=== PATIENT | female | born 1965 | race Caucasian/White ===

== ENCOUNTER 2016-10-23 05:15 | Inpatient (IN) | payer OTHER ==
--- NOTE | 2016-10-20 01:12 | PREOPHP ---
DATE OF ADMISSION: 10/23/2016 The patient is coming in for surgery on 10/23/2016. HISTORY OF PRESENT ILLNESS: This is a 50-year-old female 5, para 4, with 1 . This patient has been referred to me due to a prolapse of her bladder and ureters. This patient has been referred by clinic to have vaginal reconstruction. She has been complaining of a mass that h as come out of her and stays outside, with incontinence and difficulty voiding; has not been able to void due to this mass that protrudes outside her vagina. She uses a pad to push the mass inside he rself. PAST MEDICAL HISTORY: section, cholecystectomy, D and C, and 3 vaginal deliveries. ALLERGIES: SHE IS NOT ALLERGIC TO ANY MEDICATIONS. MEDICATIONS: She is on no medication. FAMILY HISTORY: Heart attacks, diabetes, hypertension, breast cancer. REVIEW OF SYSTEMS: Noncontributory. PHYSICAL EXAMINATION: VITAL SIGNS: Blood pressure 130/80, pulse is 80, respirations 16, temperature is 98.6, she weighs 1 73, she is 5 feet 6 inches. HEAD AND NECK: Normal. BREASTS: Soft, nontender, no masses. CHEST: Clear. HEART: Normal sinus rhythm. BACK: Normal. ABDOMEN: Soft, nontender, no masses. PELVIC: With a cervix that is outside the vagina as complete uterovaginal procidentia. The uterus is dry on the cervical area. There is vaginal atrophy. Normal size uterus. Adnexa are nonpalpable . DIAGNOSES: 1. Complete uterovaginal prolapse procidentia. 2. Vaginal atrophy. 3. Menopause. PLAN: She is undergoing a vaginal total hysterectomy, anterior and posterior colporrhaphy with a sl ing and a graft. She has been advised of the possible risks and possible complications of the proce dure with her alternatives and options. Written information was provided. She had no more question s and agreed to go ahead with the procedure with full understanding and no more questions. The minnie ent understands that she had a previous section and there is a possibility that I might nee d to do an exploratory lap if I am not able to remove the uterus vaginally. Dictated By: ALEXIS INTERAINO/NTS Conf#: [id number] DID#: [id number]
[~2016-10-23] VITALS: Ht 165.1 cm; Wt 76.2 kg
[2016-10-23] VITALS (36 sets, daily range): BP systolic 94–185; BP diastolic 52–92; PULSE 64–90; RESP 10–18; Ht 165.1 cm; Wt 76.2 kg
[2016-10-23] MEDS ORDERED: CEFAZOLIN 2 GM/50 ML (PMX) 50 ML IVPB ONE (06:30)
[2016-10-23] MEDS ORDERED: DEXTROSE 5%-LR 1,000 ML IV SCH (06:30)
[2016-10-23] MEDS ORDERED: THROMBIN 5000 UNIT VIAL ONE (06:57)
[2016-10-23] MEDS ORDERED: BUPIVACAINE 0.25%/EPI (SDV) 30 ML INJ ONE ×2 (07:07→09:25)
[2016-10-23] MEDS ORDERED: PROPOFOL 20 ML ONE (07:36)
[2016-10-23] MEDS ORDERED: morphine SULFATE/PF (10 MG/10 ML) INJ ONE (07:36)
[2016-10-23] MEDS ORDERED: ROCURONIUM 50 MG INJ ONE (07:36)
[2016-10-23] MEDS ORDERED: CEFAZOLIN 1 GM INJ ONE (07:36)
[2016-10-23] MEDS ORDERED: MIDAZOLAM 1 MG/ML 2 ML INJ ONE (07:37)
[2016-10-23] MEDS ORDERED: FENTAnyl 50 MCG/ML VIAL ONE (07:37)
--- NOTE | 2016-10-23 07:39 | HPN ---
Date/Time of Note Date/Time of Note DATE: 10/23/16 TIME: 07:39 Interval H&P Admission Note Pt. seen H&P reviewed: No system changes ALEXIS AVITIA MD Oct 23, 2016 07:39
[2016-10-23] MEDS: LACTATED RINGER'S 1,000 ML IV SCH ×2 (07:41→14:35)
[2016-10-23] MEDS ORDERED: DIPHENHYDRAMINE 50 MG CAP PO PRN (08:00)
[2016-10-23] MEDS ORDERED: HYDROmorphONE 1 MG/ML SYG IV PRN ×3 (08:00→10:00)
[2016-10-23] MEDS ORDERED: HYDROCODONE/APAP (5/325) TAB PO PRN ×2 (08:00→10:00)
[2016-10-23] MEDS ORDERED: KETOROLAC 30 MG INJ IV SCH (08:00)
[2016-10-23] MEDS ORDERED: ZOLPIDEM 5 MG TAB PO PRN (08:00)
[2016-10-23] MEDS ORDERED: ONDANSETRON 4 MG INJ ONE (09:55)
[2016-10-23] MEDS ORDERED: METOCLOPRAMIDE 10 MG INJ ONE (09:55)
[2016-10-23] MEDS ORDERED: DEXAMETHASONE 4 MG/ML 1 ML INJ ONE (09:55)
[2016-10-23] MEDS ORDERED: ACETAMINOPHEN 1000MG/100ML IV 100 ML ONE (09:56)
[2016-10-23] MEDS ORDERED: KETOROLAC 30 MG INJ ONE (09:56)
[2016-10-23] MEDS ORDERED: morphine 4 MG/ML VIAL IV PRN (10:00)
[2016-10-23] MEDS ORDERED: morphine 2 MG INJ IV PRN (10:00)
[2016-10-23] MEDS ORDERED: KETOROLAC 30 MG INJ IV PRN (10:00)
[2016-10-23] MEDS ORDERED: ACETAMINOPHEN 500 MG TAB PO PRN (10:00)
[2016-10-23] MEDS ORDERED: NALOXONE (0.4 MG/ML) INJ IV PRN (10:00)
[2016-10-23] MEDS ORDERED: NEOSTIGMINE 3 MG/3 ML SYRINGE ONE (10:32)
[2016-10-23] MEDS ORDERED: GLYCOPYRROLATE 0.4 MG INJ ONE (10:32)
--- NOTE | 2016-10-23 10:48 | OPR ---
Date/Time of Note Date/Time of Note DATE: 10/23/16 TIME: 10:48 Operative Report Procedure Date: Oct 23, 2016 Preoperative Diagnosis complete uterovaginal prolapse mixed incontinence Postoperative Diagnosis same Operation Performed VAGINAL TOTAL HYSTERECTOMY BILATERAL PARTIAL SALPINGECTOMY ANTERIOR AND POSTERIOR COLPORRHAPHY OBTRYX SLING ACCELL GRAFT CYSTOSCOPY Surgeon: ALEXIS AVITIA MD assistant banquet manager: NICK GARCIA MD Anesthesia: general Estimated Blood Loss: 50 - 100 ml's Specimens UTERUS TUBES VAGINAL MUCOSA Grafts/Implants ACCELL AND XENFORM GRAFT OBTRYX SLING Complications: None Pt Condition Post Procedure: stable Disposition: PACU ALEXIS AVITIA MD Oct 23, 2016 10:48
--- NOTE | 2016-10-23 11:43 | OPR ---
Date/Time of Note Date/Time of Note DATE: 10/23/16 TIME: 11:10 Operative Report Free Text/Dictation This is Dr. avitia dictating. Preoperative report Patient name is Berenice Del Real Procedure total vaginal hysterectomy anterior and posterior repair suburethral sling, Obtryx Accell graft Cystoscopy. Procedure : the patient was placed in the lithotomy position the perineal and vaginal area were prepped and draped and confirmatory examination under anesthesia revealed that she had a complete uterovaginal prolapse A clamp was used on the cervix and the LigaSure instrument was used for the cardinal ligaments and the uterosacral ligaments and injection with Xylocaine and epinephrine was given around the cervix and into the cul-de-sac was found then the posterior cul-de-sac was found the uterine vessels were clamped cut and tied with the LigaSure instrument again and the uterus was inverted and the ovarian pedicle was clamped with Mame clamps and the uterus was excised both Cari clamps were sutured with double stitches with #1 Vicryl the hemostasis was perfect the pleased with piece of the both tubes were removed due to prevention for future ovarian cancer and this was done with a LigaSure instrument the fimbriated end of both tubes were removed the cavity was closed with a pursestring suture with an 0 Vicryl and the cardinal ligament stump and the utero uterine pedicles on the adnexal area were tied to ipsilateral side and the sutures were passed through the vaginal mucosa anteriorly and posteriorly, a pursestring suture with an 0 Vicryl was used to close the peritoneum. The vagina was now closed with interrupted sutures with #1 Vicryl and this was done vertically by tying the pedicles of the adnexa, the vaginal cuff was lifted up. Now at this time the anterior repair was started by placing a Bolton catheter and a midline incision was made 2 cm below the urethra all the way up to the vaginal cuff, injection with Xylocaine and epinephrine was given to separate the planes and the bladder was from the anterior vaginal mucosa, the bladder was in the third to fourth degree prolapse and it was pursestring with a 2-0 Vicryl suture this lifted up the vaginal cuff. Now the Obtryx sling was going to be placed and the lucita was done 2 cm below the adductor longus tendon parallel to the clitoris the Obtryx needle was passed through the obturator perforating the membrane and reaching the periurethral area where the sling was attached to it and brought up the arms of the sling through the obturator canal, this was done in both sides and the sling was approximated to the urethral area, before this was done a piece of acell and a piece xenform graft were covering the mid urethral area for protection, the sling was placed without being pulled and on the other side of the sling the same graft with Accell as well were placed for protection of possible protrusion into the vagina , the vagina was slightly trimmed due to a major excess of the vaginal mucosa and the vagina was closed vertically with 2 0 pop offs 2-0 Vicryl sutures. At this time his cystoscopy was done with a #70 camera and the intactness of the bladder was assessed and found to be in very good condition the cystoscope. Cystoscopy was finished and the Bolton catheter was placed back in and now the posterior repair was started by making a triangular incision of the perineum, this portion of the skin was removed and the injection of Xylocaine and epinephrine was given to the middle of the posterior vaginal mucosa to about 5 cm inside the vagina, the midline incision of the vagina was made, the rectocele was from the posterior vaginal mucosa the rectocele was reduced with 2-0 Vicryl sutures and the ends and the excess of the vaginal mucosa were trimmed, the vaginal mucosa was closed with 2-0 Vicryl pop off sutures and the perineal area was tied with #1 Vicryl suture large stitch to the levator ani muscle, the posterior vaginal area was lifted with this stitch , the rest of the perineum was closed as a regular episiotomy with 2-0 Vicryl and 3-0 Vicryl and and an iodoform gauze was placed in the vagina for control of bleeding and for reposition of the tissues that were loosened up. The patient tolerated the procedure well and left the OR awake and stable sponge counts and instruments counts were correct, intravenous antibiotics were given for prophylaxis blood loss was minimal and the urine was clear at the end of the procedure this is Dr Avitia, thank you very much Procedure Date: Oct 23, 2016 Preoperative Diagnosis complete uterovaginal prolapse mixed incontinence Postoperative Diagnosis same Operation Performed VAGINAL TOTAL HYSTERECTOMY BILATERAL PARTIAL SALPINGECTOMY ANTERIOR AND POSTERIOR COLPORRHAPHY OBTRYX SLING ACCELL GRAFT CYSTOSCOPY Surgeon: ALEXIS AVITIA MD care assistant: NICK GARCIA MD Anesthesia: general Estimated Blood Loss: 50 - 100 ml's Specimens UTERUS TUBES VAGINAL MUCOSA Grafts/Implants ACCELL AND XENFORM GRAFT OBTRYX SLING Complications: None Pt Condition Post Procedure: stable Disposition: PACU ALEXIS AVITIA MD Oct 23, 2016 11:43
[2016-10-23] MEDS: ONDANSETRON 4 MG INJ IV PRN ×2 (11:49→21:53)
[2016-10-23] MEDS: METOCLOPRAMIDE 10 MG TAB PO SCH ×2 (12:00→18:15)
[2016-10-23] MEDS: CEFAZOLIN 1 GM/50 ML (PMX) 50 ML IVPB SCH ×2 (14:36→21:54)
[2016-10-23] MEDS ORDERED: ONDANSETRON 4 MG INJ IV PRN (17:00)
[2016-10-24] MEDS: METOCLOPRAMIDE 10 MG TAB PO SCH ×4 (00:12→17:32)
[2016-10-24 00:15] VITALS: BP 99/55; PULSE 79; RESP 20
[2016-10-24] MEDS: LACTATED RINGER'S 1,000 ML IV SCH ×2 (00:17→10:49)
[2016-10-24 05:32] LABS: ADD SCAN DIFF NO
[2016-10-24 05:37] LABS: BASOPHILS % 0.1 % (0.0-2.0); HEMOGLOBIN 11.4 g/dl (12.0-16.0); LYMPHOCYTES # 1.7 10^3/ul (0.8-2.9); LYMPHOCYTES % 12.3 % (15.0-51.0); MEAN CORPUSCULAR HGB CONC 31.7 g/dl (32.0-37.0); MEAN CORPUSCULAR VOLUME 85.3 fl (82.0-101.0); MEAN PLATELET VOLUME 9.8 fl (7.4-10.4); MONOCYTES % 7.7 % (0.0-11.0); NEUTROPHIL # 10.7 10^3/ul (1.6-7.5); NEUTROPHILS % 79.3 % (39.0-77.0); PLATELET COUNT 240 10^3/UL (140-415); RED BLOOD COUNT 4.22 10^6/ul (4.20-5.40); RED CELL DISTRIBUTION WIDTH 13.8 % (11.5-14.5); WHITE BLOOD COUNT 13.5 10^3/ul (4.8-10.8)
[2016-10-24 05:45] VITALS: BP 94/50; PULSE 69; RESP 20
[2016-10-24] MEDS: CEFAZOLIN 1 GM/50 ML (PMX) 50 ML IVPB SCH (06:09)
[2016-10-24 06:14] LABS: CREATININE 0.53 mg/dl (0.44-1.00); POTASSIUM 4.9 mmol/L (3.5-5.1)
[2016-10-24 07:19] VITALS: BP 90/55; RESP 18
--- NOTE | 2016-10-24 12:23 | PN ---
Date/Time of Note Date/Time of Note DATE: 10/24/16 TIME: 12:20 Assessment/Plan Lines/Catheters IV Catheter Type (from Nrsg): Peripheral IV Bolton in Place (from Nrsg): No Subjective 24 Hr Interval Summary Patient is doing very well this morning, she has not been up yet Bolton catheter and vaginal packing has been removed and she feels with no pain on IV medication and p.o. medication The patient is advised to get up and mobilize and she probably will be discharged tomorrow after she has a bowel movement Laboratory testing were all within normal limits Constitutional: BM, ambulates, flatus, improved, no complaints, urine output Feeding: advancing diet Pain Control: well controlled Detailed Summary Eyes: no complaints ENT: no complaints Respiratory: no complaints Cardiovascular: no complaints Gastrointestinal: no complaints Genitourinary: no complaints Musculoskeletal: no complaints Skin: no complaints Neurologic: no complaints Endocrine: no complaints Lymphatic: no complaints Psychological: nl mood/affect, no complaints Immunologic: no complaints Exam/Review of Systems Vital Signs Vitals Vital Signs Date Time Temp Pulse Resp B/P Pulse Ox O2 Delivery O2 Flow Rate FiO2 10/24/16 08:30 Nasal Cannula 1.0 10/24/16 07:19 98.5 73 18 90/55 95 Intake and Output 10/23/16 10/23/16 10/24/16 15:00 23:00 07:00 Intake Total 1400 ml 350 ml 1825 ml Output Total 100 ml 500 ml 1350 ml Balance 1300 ml -150 ml 475 ml Exam Constitutional: alert, oriented, well developed Psych: nl mood/affect, no complaints Head: atraumatic, normocephalic Eyes: EOMI, nl conjunctiva, nl lids, nl sclera ENMT: mucosa pink and moist, nl external ears & nose, nl lips & teeth, nl nasal mucosa & septum Neck: non-tender, supple Respiratory: clear to auscultation, normal air movement Cardiovascular: nl pulses, regular rate and rhythm Gastrointestinal: nl liver, spleen, non-tender, soft Musculoskeletal: nl extremities to inspection, nl gait and stance Extremities: normal pulses Neurological: DESK OPERATOR II-XII intact, nl mental status, nl speech, nl strength Skin: nl turgor, rash or lesions Lymph: nl lymph nodes Results Result Diagram: 10/24/16 0523 10/24/16 0523 ALEXIS AVITIA MD Oct 24, 2016 12:23
[2016-10-24] MEDS: HYDROCODONE/APAP (5/325) TAB PO PRN ×2 (14:16→20:57)
[2016-10-24 20:08] VITALS: BP 108/61; PULSE 72; RESP 18
[2016-10-25] MEDS: METOCLOPRAMIDE 10 MG TAB PO SCH ×3 (00:19→12:35)
[2016-10-25 06:40] LABS: BASOPHILS % 0.3 % (0.0-2.0); EOSINOPHILS % 0.2 % (0.0-7.0); HEMATOCRIT 35.9 % (37.0-47.0); HEMOGLOBIN 11.5 g/dl (12.0-16.0); LYMPHOCYTES # 2.7 10^3/ul (0.8-2.9); LYMPHOCYTES % 24.1 % (15.0-51.0); MEAN CORPUSCULAR HEMOGLOBIN 27.4 pg (29.0-33.0); MEAN CORPUSCULAR VOLUME 85.5 fl (82.0-101.0); MEAN PLATELET VOLUME 10.8 fl (7.4-10.4); MONOCYTE # 0.9 10^3/ul (0.3-0.9); MONOCYTES % 7.8 % (0.0-11.0); NEUTROPHIL # 7.6 10^3/ul (1.6-7.5); NEUTROPHILS % 67.2 % (39.0-77.0); PLATELET COUNT 227 10^3/UL (140-415); RED CELL DISTRIBUTION WIDTH 14.5 % (11.5-14.5); WHITE BLOOD COUNT 11.3 10^3/ul (4.8-10.8)
[2016-10-25 07:23] LABS: ADD SCAN DIFF NO
[2016-10-25 07:37] VITALS: BP 122/74; RESP 16
--- NOTE | 2016-10-25 14:32 | DS ---
Date/Time of Note Date/Time of Note DATE: 10/25/16 TIME: 13:53 Discharge Summary Admission/Discharge Info Admit Date/Time Oct 23, 2016 at 05:15 Discharge Date/Time 10/25/16 Discharge Diagnosis Complete uterovaginal prolapse mixed incontinence Patient Condition: Good Procedures VTH BS AP REPAIR Hx of Present Illness 51 years old multigravida, referred to me due to a mass coming out of her vaginal area . complicated by not being able to empty her bladder and have urinary accidents. healthy otherwise a vaginal reconstruction was advised Hospital Course the patient had a vaginal hysterectomy BS and AP repair with an obtryx sling and accell and xenoform graft. she was ambulatory the next day and was sent home on day 2 postop after BM and after her residual urine was near normal.SHe was tolerating diet. Bladder scans were done periodically to rule out retention. SHe was controlled on her pain by po meds. and was ambulatory with no complaints. ibuprofen and tylenol with codeine were given. The patient left the hospital with instructions of what to do and not to do and she was .happy to go home. Instructions were given Primary Care Provider Care Physician No Primary Pending Labs Laboratory Tests Test 10/25/16 05:05 White Blood Count 11.310^3/ul (4.8-10.8) Red Blood Count 4.2010^6/ul (4.20-5.40) Hemoglobin 11.5g/dl (12.0-16.0) Hematocrit 35.9% (37.0-47.0) Mean Corpuscular Volume 85.5fl (82.0-101.0) Mean Corpuscular Hemoglobin 27.4pg (29.0-33.0) Mean Corpuscular Hemoglobin Concent 32.0g/dl (32.0-37.0) Red Cell Distribution Width 14.5% (11.5-14.5) Platelet Count 94954^3/UL (140-415) Mean Platelet Volume 10.8fl (7.4-10.4) Neutrophils % 67.2% (39.0-77.0) Lymphocytes % 24.1% (15.0-51.0) Monocytes % 7.8% (0.0-11.0) Eosinophils % 0.2% (0.0-7.0) Basophils % 0.3% (0.0-2.0) Nucleated Red Blood Cells % 0.0/100WBC (0.0-0.0) Neutrophils # 7.610^3/ul (1.6-7.5) Lymphocytes # 2.710^3/ul (0.8-2.9) Monocytes # 0.910^3/ul (0.3-0.9) Eosinophils # 0.010^3/ul (0.0-0.5) Basophils # 0.010^3/ul (0.0-0.1) Nucleated Red Blood Cells # 0.010^3/ul (0.0-0.0) ALEXIS AVITIA MD Oct 25, 2016 14:08
== END 2016-10-25 15:50 | disposition home or self-care (01) | DRG 743 ==
LOC: REC 05:15 → EDSTATUS 07:30 → MS2 13:40
PROVIDERS: ADMIT Obstetrics & Gynecology; ATTEND Obstetrics & Gynecology
PROC: 0UB77ZZ Excision of Bilateral Fallopian Tubes, Via Natural or Artificial Opening (ICD-10-PCS; 2016-10-23)
PROC: 0JUC0JZ Supplement of Pelvic Region Subcutaneous Tissue and Fascia with Synthetic Substitute, Open Approach (ICD-10-PCS; 2016-10-23)
PROC: 0JUC0JZ Supplement of Pelvic Region Subcutaneous Tissue and Fascia with Synthetic Substitute, Open Approach (ICD-10-PCS; 2016-10-23)
PROC: 0TSD0ZZ Reposition Urethra, Open Approach (ICD-10-PCS; 2016-10-23)
PROC: 0TJB8ZZ Inspection of Bladder, Via Natural or Artificial Opening Endoscopic (ICD-10-PCS; 2016-10-23)
PROC: 0UT97ZZ Resection of Uterus, Via Natural or Artificial Opening (ICD-10-PCS; principal; 2016-10-23 07:30)
PROC: 0UTC7ZZ Resection of Cervix, Via Natural or Artificial Opening (ICD-10-PCS; 2016-10-23 07:30)
DX: N81.3 Complete uterovaginal prolapse (principal); N39.46 Mixed incontinence; Z78.0 Asymptomatic menopausal state
CPT/HCPCS: 80051; 82565; 84520; 85025; 87086; 88305; A4310; C1771; C1781; J0131; J0690; J1100; J1170; J1885; J2250; J2274; J2405; J2710; J2765; J3010; J7120; Q4166